=== PATIENT | female | born 1990 | race Asian ===

== ENCOUNTER 2019-03-04 13:05 | Inpatient (IN) | payer MEDICAID ==
[~2019-03-04] VITALS: Ht 157.5 cm; Wt 43.5 kg
[2019-03-04 18:11] VITALS: BP 140/94
[2019-03-04] MEDS ORDERED: HALOPERIDOL 5 MG TABLET PO PRN (18:15)
[2019-03-04] MEDS ORDERED: LORazepam 1 MG TABLET PO PRN (18:15)
[2019-03-04] MEDS ORDERED: ZOLPIDEM TARTRATE 10 MG TABLET PO PRN (18:15)
[2019-03-04] MEDS ORDERED: INFLUENZA VIRUS VACCINE QVS 2019-20 (3YR+)/PF 60 MCG/0.5 ML SYRINGE IM ONE (20:15)
[2019-03-04 20:22] VITALS: BP 151/97
[2019-03-04 21:10] VITALS: BP 124/86
[2019-03-05] MEDS ORDERED: MAGNESIUM HYDROXIDE SUSPENSION 30 ML UDCUP PO PRN
[2019-03-05] MEDS ORDERED: ALBUTEROL SULFATE HFA 90 MCG/PUFF 8 GM INHALER IH PRN
[2019-03-05] MEDS ORDERED: CloNIDine HCL 0.1 MG TABLET PO PRN
[2019-03-05] MEDS ORDERED: PETROLATUM,WHITE 28 GM JELLY TP PRN
[2019-03-05] MEDS ORDERED: ONDANSETRON HCL 4 MG TABLET PO PRN
[2019-03-05] MEDS ORDERED: DOCUSATE SODIUM 100 MG CAPSULE PO PRN
[2019-03-05] MEDS ORDERED: IBUPROFEN 400 MG TABLET PO PRN
[2019-03-05] MEDS ORDERED: LOPERAMIDE HCL 2 MG CAPSULE PO PRN
[2019-03-05] MEDS ORDERED: MAG HYDROX/AL HYDROX/SIMETH ES 30 ML SUSPENSION UDCUP PO PRN
[2019-03-05] MEDS ORDERED: NICOTINE 14 MG/24 HOUR PATCH TD PRN
[2019-03-05] MEDS ORDERED: GuaiFENesin/D-METHORPHAN [SUGAR-FREE] 200-20MG/10 ML SYRUP UDCUP PO PRN
[2019-03-05] MEDS ORDERED: ACETAMINOPHEN 325 MG TABLET PO PRN
[2019-03-05 06:15] VITALS: BP 123/82
[2019-03-05 07:58] LABS: EOSINOPHILS % (AUTO) 1.8 % (1.0-6.0); LYMPHOCYTES # (AUTO) 1.9 K/uL (1.0-4.8); LYMPHOCYTES % (AUTO) 40.7 % (22.0-44.0); MEAN CORPUSCULAR HEMOGLOBIN 30.7 pg (26.0-34.0); MEAN CORPUSCULAR HGB CONC 34.1 G/dL (31.0-37.0); MEAN CORPUSCULAR VOLUME 90 fL (80-100); MONOCYTES # (AUTO) 0.6 K/uL (0.1-1.0); MONOCYTES % (AUTO) 11.6 % (2.0-9.0); NEUTROPHILS # (AUTO) 2.1 K/uL (1.8-7.7); NEUTROPHILS % (AUTO) 44.9 % (40.0-70.0); PLATELET COUNT (AUTO) 287 K/uL (150-450); RED BLOOD CELL COUNT(AUTO) 4.89 MIL/uL (4.00-5.20); RED CELL DISTRIBUTION WIDTH 13.1 % (11.5-14.5)
[2019-03-05 08:11] LABS: HEMOGLOBIN A1C 4.9 % (4.5-6.2)
[2019-03-05 08:24] VITALS: BP 126/90
[2019-03-05 08:32] LABS: ALANINE AMINOTRANSFERASE 19 U/L (12-78); ALBUMIN 4.4 g/dL (3.4-5.0); ALKALINE PHOSPHATASE 55 U/L (46-116); ANION GAP 10 mmol/L (8-16); ASPARTATE AMINOTRANSFERASE 16 U/L (15-37); BILIRUBIN,TOTAL 0.3 mg/dL (0.1-1.0); CALCIUM, TOTAL 9.7 mg/dL (8.8-10.5); CARBON DIOXIDE 28 mmol/L (22-29); CHLORIDE 102 mmol/L (98-107); CHOL/HDL RATIO 2.7 (3.9-5.7); CHOLESTEROL 194 mg/dL (131-200); CREATININE 0.74 mg/dL (0.60-1.30); FREE T4 (FREE THYROXINE) 1.51 ng/dL (0.76-1.46); GLOMERULAR FILTR. RATE CALC > 60 mL/min (>60); GLUCOSE,RANDOM 90 mg/dL (70-110); HCG,QUANTITATIVE < 1 mIU/mL (0-6); HDL CHOLESTEROL 73 mg/dL (40-60); LDL CHOL (CALC.) 111 mg/dL (0-130); POTASSIUM 4.1 mmol/L (3.5-5.1); SODIUM SERUM 140 mmol/L (136-145); THYROID STIMULATING HORMONE 1.16 uIU/mL (0.36-3.74); TOTAL PROTEIN, SERUM 7.8 g/dL (6.4-8.2); TRIGLYCERIDES 49 mg/dL (15-150); UREA NITROGEN, BLOOD 9 mg/dL (7-18)
[2019-03-05] MEDS: AmLODIPine BESYLATE 5 MG TABLET PO SCH (08:39)
[2019-03-05] MEDS: RisperiDONE 1 MG TABLET PO SCH ×2 (13:04→17:04)
[2019-03-05 16:15] VITALS: BP 119/90
[2019-03-06 06:01] VITALS: BP 125/80
[2019-03-06 07:00] VITALS: BP 120/75
[2019-03-06] MEDS: RisperiDONE 1 MG TABLET PO SCH ×2 (08:25→16:22)
[2019-03-06] MEDS: AmLODIPine BESYLATE 5 MG TABLET PO SCH (08:25)
[2019-03-06 08:31] VITALS: BP 126/84
[2019-03-06 16:03] VITALS: BP_SYST 120; BP_SYST 136; BP_DIAS 74; BP_DIAS 88
[2019-03-07 06:38] VITALS: BP 130/83
[2019-03-07 08:05] VITALS: BP 128/75
[2019-03-07] MEDS: RisperiDONE 1 MG TABLET PO SCH ×2 (08:29→17:17)
[2019-03-07] MEDS: AmLODIPine BESYLATE 5 MG TABLET PO SCH (08:30)
[2019-03-07 16:08] VITALS: BP 124/76
[2019-03-07] MEDS: LITHIUM CARBONATE 300 MG CAPSULE PO SCH (17:17)
[2019-03-08 06:22] VITALS: BP 116/75
[2019-03-08] MEDS: LITHIUM CARBONATE 300 MG CAPSULE PO SCH ×2 (06:44→16:54)
[2019-03-08] MEDS: RisperiDONE 1 MG TABLET PO SCH ×2 (08:03→16:54)
[2019-03-08 08:15] VITALS: BP 126/78
[2019-03-08] MEDS: AmLODIPine BESYLATE 5 MG TABLET PO SCH (08:23)
[2019-03-08 12:20] VITALS: BP 126/78
[2019-03-08 16:16] VITALS: BP 126/92
[2019-03-08] MEDS ORDERED: RISP1 PO (22:34)
[2019-03-08] MEDS ORDERED: AMLO5TAB9 PO (22:38)
[2019-03-08] MEDS ORDERED: LITH300C3 PO (22:38)
[2019-03-09 06:29] VITALS: BP 114/87
[2019-03-09] MEDS: LITHIUM CARBONATE 300 MG CAPSULE PO SCH ×2 (06:35→16:16)
[2019-03-09 08:12] VITALS: BP 115/77
[2019-03-09] MEDS: AmLODIPine BESYLATE 5 MG TABLET PO SCH (08:24)
[2019-03-09] MEDS: RisperiDONE 1 MG TABLET PO SCH ×2 (08:25→16:15)
[2019-03-09 16:04] VITALS: BP 115/84
[2019-03-10 06:38] VITALS: BP 116/70
[2019-03-10] MEDS: LITHIUM CARBONATE 300 MG CAPSULE PO SCH (07:04)
[2019-03-10 08:29] VITALS: BP 115/79
[2019-03-10] MEDS: RisperiDONE 1 MG TABLET PO SCH (08:44)
[2019-03-10] MEDS: AmLODIPine BESYLATE 5 MG TABLET PO SCH (08:44)
== END 2019-03-10 10:45 | disposition home or self-care (01) | DRG 750 ==
LOC: B3A 19:28
PROVIDERS: ADMIT Psychiatry & Neurology Psychiatry; ATTEND Psychiatry & Neurology Psychiatry
DX: F25.9 Schizoaffective disorder, unspecified (principal); F12.10 Cannabis abuse, uncomplicated; R00.0 Tachycardia, unspecified; R03.0 Elevated blood-pressure reading, without diagnosis of hypertension; Z79.899 Other long term (current) drug therapy; Z28.21 Immunization not carried out because of patient refusal; Z88.8 Allergy status to other drugs, medicaments and biological substances; Z71.51 Drug abuse counseling and surveillance of drug abuser
CPT/HCPCS: 83036; 84439; 84443; 87081